=== PATIENT | male | born 1990 | race Caucasian/White ===

== ENCOUNTER 2019-04-01 20:38 | Observation (INO) | payer OTHER ==
--- NOTE | 2019-04-01 20:53 | ED Physician Documentation ---
History of Present Illness - Stated complaint Stated Complaint: VOMITING - Chief complaint Chief Complaint: Abd Pain - Additonal information Additional information: This is a 28-year-old male who presents with persistent vomiting for the past 24 hours. Patient states that he began developing some nausea and vomiting last night, and this morning he reported to sick call and there were several other members of the [place] who had nearly identical symptoms to him. He was seen in clinic today and was prescribed promethazine, but despite taking this he has not been able to hold down fluids and has continued to vomit, and feels very dehydra mindy. He denies any abdominal pain. He has some mild irritation of the esophagus that began after multiple episodes of vomiting. He denies any diarrhea, states he has not had any bowel movements because he cannot keep anything down. Denies drug use, or eating foods out of the ordinary. No fever. Review of Systems Constitutional: denies: Fever Cardiac: denies: Chest pain / pressure GI: reports: Nausea, Vomiting. denies: Abdominal Pain : denies: Dysuria Neurologic: denies: Syncope Immunocompromised: denies: Immunocompromised PD PAST MEDICAL HISTORY - Past Medical History Past Medical History: No Other Past Medical History: Shoulder subluxation - Past Surgical History Past Surgical History: Yes Ortho: Other (Pins in right knee 2004) - Present Medications Home Medications: Ambulatory Orders Medication Instructions Recorded Confirmed [place]-3S/Dha/Epa/Fish Oil [[place]-3 1 04/01/19 Gummies] - Allergies Allergies/Adverse Reactions: Allergies Allergy/AdvReac Type Severity Reaction Status Date / Time No Known Drug Allergies Allergy Verified 04/01/19 21:03 - Living Situation Living Arrangement: reports: At home - Social History Does the pt drink ETOH?: Yes ETOH Use: Other (Rarely) Does the pt have substance abuse?: No - Family History Family history: reports: Non contributory PD ED PE NORMAL - Vitals Vital signs reviewed: Yes - General General: Alert and oriented X 3, No acute distress - HEENT HEENT: PERRL, Other (Mucous membranes tacky) - Neck Neck: Supple, no meningeal sign - Cardiac Cardiac: RRR, No murmur - Respiratory Respiratory: Clear bilaterally - Abdomen Abdomen: Soft, Non tender, Non distended, Other (No tenderness with deep palpation in all four quadrants) - Derm Derm: Warm and dry - Extremities Extremities: No deformity - Neuro Neuro: Alert and oriented X 3 - Psych Psych: Normal mood, Normal affect Results - Vitals Vitals: Vital Signs - 24 hr 04/01/19 04/01/19 04/01/19 20:42 21:14 22:12 Temperature 36.6 C Heart Rate 105 H 84 54 L Respiratory 16 17 17 Rate Blood Pressure 156/93 H 132/91 H 130/75 O2 Saturation 98 98 101 H 04/01/19 23:25 Temperature Heart Rate 55 L Respiratory 17 Rate Blood Pressure 119/78 O2 Saturation 97 Oxygen O2 Source Room air - Labs Labs: Laboratory Tests 04/01/19 21:10 Sodium 140 Potassium 3.6 Chloride 102 Carbon Dioxide 28 Anion Gap 10.0 BUN 19 Creatinine 1.1 Estimated GFR (MDRD) 79 L Glucose 97 Calcium 9.7 Total Bilirubin 1.1 H AST 21 ALT 19 Alkaline Phosphatase 73 Total Protein 8.8 H Albumin 5.1 Globulin 3.7 Albumin/Globulin Ratio 1.4 Lipase 23 PD MEDICAL DECISION MAKING - ED course Complexity details: considered differential (Gastroenteritis, electrolyte abnormality, dehydration, gastritis, peptic ulcer disease, pancreatitis, biliary pathology) ED course: Patient presents with intractable nausea and vomiting despite taking promethazine. He has no abdominal pain and has benign abdominal exam. He is tachycardic on arrival, he is given 2 L of Crystalloid and his heart rate improved to the high 50s, which is his baseline. CMP is unremarkable. Patient was given Zofran but he continued to have vomiting so he was given Reglan and Benadryl IV, He continued to have vomiting, so he was given another dose of Zofran. He was unable to tolerate p.o. after all for these medications, and has already failed outpatient treatment with promethazine, I feel that he warrants observation for his intractable nausea and vomiting. I do think he likely has an early gastroenteritis, he has no abdominal pain or tenderness, no labs to suggest that he has pancreatitis for other acute abdominal pathology. He has no epigastric pain to suggest a peptic ulcer at this time. I did give him famotidine for potential component of gastritis. Patient was admitted to the hospitalist for further evaluation and work-up, please refer to their notes for the hospital course. CBC was added on and is pending at the time of admission. Departure - Departure Disposition: ED Place in Observation Clinical Impression: Intractable vomiting with nausea Qualifiers: Vomiting type: unspecified Qualified Code(s): R11.2 - Nausea with vomiting, unspecified Condition: Stable Discharge Date/Time: 04/02/19 01:11
[2019-04-01] MEDS ORDERED: ONDANSETRON 4 MG/2 ML VIAL IVP STA ×2 (20:58→22:46)
[2019-04-01] MEDS ORDERED: SODIUM CHLORIDE 0.9% 1,000 ML IV STA (20:58)
[2019-04-01] MEDS ORDERED: SODIUM CHLORIDE 0.9% 1,000 ML IV ONE (20:58)
[2019-04-01 21:28] LABS: ALBUMIN 5.1 g/dL (3.2-5.5); ALBUMIN/GLOBULIN RATIO 1.4 (1.0-2.2); BILIRUBIN,TOTAL 1.1 mg/dL (0.2-1.0); CALCIUM 9.7 mg/dL (8.5-10.3); CREATININE 1.1 mg/dL (0.6-1.2); TOTAL PROTEIN 8.8 g/dL (6.7-8.2)
[2019-04-01] MEDS ORDERED: METOCLOPRAMIDE 10 MG/2 ML VIAL IVP STA (22:00)
[2019-04-01] MEDS ORDERED: diphenhydrAMINE INJ 50 MG/ML VIAL IVP STA (22:00)
[2019-04-02] MEDS ORDERED: FAMOTIDINE 20 MG/2 ML VIAL IVP STA (00:32)
[2019-04-02] MEDS ORDERED: SODIUM CHLORIDE FLUSH 0.9% 10 ML SYRINGE IVP PRN (00:37)
[2019-04-02] MEDS ORDERED: ONDANSETRON 4 MG/2 ML VIAL IVP PRN (00:37)
[2019-04-02] MEDS ORDERED: PROCHLORPERAZINE 10 MG/2 ML VIAL IVP PRN (00:37)
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
[2019-04-02] MEDS: SODIUM CHLORIDE 0.9% 1,000 ML IV SCH ×2 (01:44→11:15)
[2019-04-02] MEDS: SODIUM CHLORIDE FLUSH 0.9% 10 ML SYRINGE IVP SCH ×2 (01:44→11:15)
[2019-04-02 06:04] LABS: BASOPHILS % (AUTO) 0.4 %; EOSINOPHILS # (AUTO) 0.6 10^3/uL (0.0-0.7); EOSINOPHILS % (AUTO) 5.6 %; HGB - HEMOGLOBIN 13.3 g/dL (14.0-18.0); LYMPHOCYTES # (AUTO) 2.1 10^3/uL (1.5-3.5); LYMPHOCYTES % (AUTO) 18.4 %; MEAN CORPUSCULAR HEMOGLOBIN 29.5 pg (27.0-31.0); MEAN CORPUSCULAR HGB CONC 33.7 g/dL (32.0-36.0); MEAN CORPUSCULAR VOLUME 87.6 fL (80.0-94.0); MEAN PLATELET VOLUME 9.5 fL (7.4-11.4); MONOCYTES # (AUTO) 0.6 10^3/uL (0.0-1.0); MONOCYTES % (AUTO) 5.5 %; NEUTROPHILS # (AUTO) 7.8 10^3/uL (1.5-6.6); NEUTROPHILS % (AUTO) 69.7 %; PLT - PLATELET COUNT 207 10^3/uL (130-450); RED BLOOD COUNT 4.51 10^6/uL (4.70-6.10); RED CELL DISTRIBUTION WIDTH 12.7 % (12.0-15.0); WHITE BLOOD COUNT 11.2 x10^3/uL (4.8-10.8)
[2019-04-02 06:11] LABS: CALCIUM 8.7 mg/dL (8.5-10.3); CREATININE 0.9 mg/dL (0.6-1.2)
[2019-04-02] MEDS ORDERED: PANTOPRAZOLE 40 MG VIAL IVP SCH (07:00)
[2019-04-02] MEDS ORDERED: POLYETHYLENE GLYCOL 3350 17 GM PACKET PO SCH (09:00)
[2019-04-02 12:25] LABS: MUDS CUTOFF CONCENTRATIONS CUTOFF CONC BELOW:
[2019-04-02 12:31] LABS: BILIRUBIN,URINE NEGATIVE (NEGATIVE); GLUCOSE, URINE (UA) NEGATIVE (NEGATIVE); KETONES,URINE (UA) 40 mg/dL (NEGATIVE); LEUKOCYTE ESTERASE, URINE NEGATIVE (NEGATIVE); NITRITE,URINE NEGATIVE (NEGATIVE); OCCULT BLOOD,URINE TRACE-INTA (NEGATIVE); PROTEIN,URINE NEGATIVE (NEGATIVE); UROBILINOGEN,URINE 2 E.U./dL (NORMAL)
[2019-04-02 12:42] LABS: AMPHETAMINE SCREEN,URINE NEGATIVE (NEGATIVE); BENZODIAZEPINES SCREEN, URINE NEGATIVE (NEGATIVE); COCAINE SCREEN URINE NEGATIVE (NEGATIVE); METHADONE SCREEN, URINE NEGATIVE (NEGATIVE); METHAMPHETAMINES SCREEN, URINE NEGATIVE (NEGATIVE); OPIATE SCREEN, URINE NEGATIVE (NEGATIVE); OXYCODONE SCREEN, URINE NEGATIVE (NEGATIVE); PROPOXYPHENE SCREEN, URINE NEGATIVE (NEGATIVE); TRICYCLIC ANTIDEPRESSANT,URINE NEGATIVE (NEGATIVE)
[2019-04-02 12:45] LABS: CLARITY,URINE CLEAR (CLEAR)
[2019-04-02 12:47] LABS: RBC,URINE None Seen /HPF (0-5); SQUAMOUS EPITHELIAL CELL,UR NONE SEEN (<= Few)
[2019-04-02 12:48] LABS: BACTERIA,URINE None Seen /HPF (None Seen); MUCUS,URINE Few Strands
--- NOTE | 2019-04-02 13:07 | Discharge Plan ---
Discharge Plan Problem Reviewed?: Yes Disposition: Home, Self Care Condition: Stable Diet: Regular Activity Restrictions: Activity as Tolerated Shower Restrictions: No (fall precaution) Instruction Topics: Gastroenteritis Viral Ch Health Concerns: gastroenteritis-virus and dehydration Plan of Treatment: You denies any more nausea, vomiting, abdominal pain, and you tolerate regular diet after treatment in the hospital. Please keep hydration after discharge. Care Goals: stabilization and improvement of your medical conditions Assessment: assessment as the above Additional Instructions or Follow Up instructions: you may followup your PCP in 2-4 weeks, keep hydration. Should your symptoms return or worsen, you may present ER or call 911 for help No Smoking: If you smoke, Please STOP! Call for help. Follow-up with: KRISTAL CHERY DO [Primary Care Provider] -
--- NOTE | 2019-04-02 13:15 | DISCHARGE SUMMARY ---
Discharge Summary Discharge Date: 04/02/19 Discharging Provider: ALVARADO Primary Care Provider: Flores Gomez Condition at Discharge: Stable Discharge Disposition: 01 Home, Self Care Discharge Facility Name: home - DIAGNOSES Admission Diagnoses: (1) Intractable vomiting with nausea Discharge Diagnoses with Status of Each Condition: 1) Intractable vomiting with nausea resolved. pt denies any more nausea, vomiting or abdominal pain. pt tolerate regular diet. - HPI History of Present Illness: refer from Dr. Camacho's HPI on 04/02/19 Patient seen and examined around 1am on 04/02/19 Patient is a 28 y/o male who presented to the ED with complain of intractable nausea and vomiting. Onset of symptoms was around 8pm on 03/31/19. He went to the medical facility at the [facility] where it was thought that he had gastroenteritis. He was given a prescription of meclizine and advised to go to the ED if his symptoms did not improve. He has been up for 30 hours due to the nausea and vomiting and has not been able to keep anything down. He denied chest pain, dyspnea or abdominal pain. In the ED he was given 2L of IV fluids. He was also given zofran X2, reglan and benadryl with no improvement in his symptoms. He has vomited 4X since arriving in the ED. As a result the persistent symptoms and for concern of becoming dehydrated, he is being admitted for further treatment. - HOSPITAL COURSE Hospital Course: pt was admitted for uncontrolled nausea, vomiting. after treatment with bowel rest, hydration, antiemesis. pt has no more nausea, vomiting, and pt tolerate regular diet. pt report his four [facility]. it can be caused by virus gastroenteritis. It usually resolved by its own. 1) Intractable vomiting with nausea resolved. pt denies any more nausea, vomiting or abdominal pain. pt tolerate regular diet. - ALLERGIES Allergies/Adverse Reactions: Allergies Allergy/AdvReac Type Severity Reaction Status Date / Time No Known Drug Allergies Allergy Verified 04/01/19 21:03 - MEDICATIONS Home Medications: Ambulatory Orders Medication Instructions Recorded Confirmed [place]-3S/Dha/Epa/Fish Oil [[place]-3 1 tab PO DAILY 04/01/19 04/02/19 Gummies] Promethazine [Phenergan] 25 - 50 mg PO TID PRN 04/02/19 04/02/19 - PHYSICAL EXAM AT DISCHARGE General Appearance: positive: No acute distress, Alert. negative: Lethargic Eyes Bilateral: positive: Normal inspection, PERRL, No lid inflammation, Conju nctivae nml ENT: positive: ENT inspection nml, Pharynx nml, No signs of dehydration. negative: Purulent nasal drainage, Pharyngeal erythema, Oral lesions Neck: positive: Nml inspection, Thyroid nml, No JVD, Trachea midline. negative: Thyromegaly, Lymphadenopathy (R), Lymphadenopathy (L), Stiff neck, Swelling/bruising, Tracheal deviation Respiratory: positive: Chest non-tender, No respiratory distress, Breath sounds nml. negative: Wheezes, Rales, Rhonchi Cardiovascular: positive: Regular rate & rhythm, No murmur, No gallop. negative: Irregularly irregular, Extrasystoles, Tachycardia, Bradycardia, JVD present, Systolic murmur, Diastolic murmur Peripheral Pulses: positive: 2+ Abdomen: positive: Non-tender, No organomegaly, Nml bowel sounds, No distention. negative: Tenderness, Guarding, Rebound Back: positive: Nml inspection. negative: CVA tenderness (R), CVA tenderness (L) Skin: positive: Color nml, No rash, Warm, Dry. negative: Cyanosis, Diaphoresis, Pallor Extremities: positive: Non-tender, Full ROM, Nml appearance. negative: Calf tenderness, Joint swelling, Juanita's sign/cords Neurologic/Psychiatric: positive: Oriented x3, Motor nml, Sensation nml, Mood/affect nml. negative: Weakness, Sensory loss, Facial droop, Slurred/abnml speech, Depressed mood/affect - LABS Result Diagrams: 04/02/19 05:47 04/02/19 05:47 - FOLLOW UP Follow Up: You denies any more nausea, vomiting, abdominal pain, and you tolerate regular diet after treatment in the hospital. Please keep hydration after discharge. you may followup your PCP in 2-4 weeks, keep hydration. Should your symptoms return or worsen, you may present ER or call 911 for help - TIME SPENT Time Spent in Discharge (Minutes): 40
[2019-04-02 13:51] VITALS: BP 118/65
== END 2019-04-02 14:00 | disposition home or self-care (01) ==
LOC: ED 20:38 → MS3 04-02 00:37
PROVIDERS: ADMIT Internal Medicine; ATTEND Nurse Practitioner Gerontology
DX: R11.2 Nausea with vomiting, unspecified (principal); R00.0 Tachycardia, unspecified; Z72.0 Tobacco use
CPT/HCPCS: 36415; 80048; 80053; 81001; 83690; 85025; 96361; 96374; 96375; 96376; 99284; 99285; G0378; J1200; J2765; 80306; 87086